=== PATIENT | male | born 1960 | race Caucasian/White ===

== ENCOUNTER 2017-09-13 15:33 | Inpatient (IN) | END 2017-09-17 13:40 | disposition home or self-care (01) | DRG 940 ==

== ENCOUNTER 2017-09-24 17:05 | Emergency (ER) | END 2017-09-24 17:26 | disposition left against medical advice (07) ==

== ENCOUNTER 2017-09-26 22:16 | Inpatient (IN) | END 2017-10-01 14:20 | disposition home or self-care (01) | DRG 433 ==

== ENCOUNTER 2017-10-23 19:17 | Inpatient (IN) | END 2017-10-26 16:30 | disposition home or self-care (01) | DRG 863 ==

== ENCOUNTER 2017-10-30 13:48 | Emergency (ER) | END 2017-10-30 17:35 | disposition home or self-care (01) ==

== ENCOUNTER 2017-11-12 15:06 | Emergency (ER) | END 2017-11-12 18:21 | disposition home or self-care (01) ==

== ENCOUNTER 2017-12-28 17:48 | Inpatient (IN) | END 2018-01-06 14:45 | disposition home or self-care (01) | DRG 603 ==

== ENCOUNTER 2018-09-02 11:47 | Emergency (ER) | payer OTHER ==
[~2018-09-02] VITALS: Ht 188 cm; Wt 123.9 kg
[~2018-09-02 11:47] MED LIST: AMLO-145 PO; ASPI-817 PO; ATEN-51 PO; DOCU-144 PO; FER325 PO; FURO40TA4 PO; GABA100C14 PO; OMEG1CAP2 PO; PANT40TA4 PO; POTA20TA96 PO; SPIR50TA PO
[2018-09-02 12:07] VITALS: Ht 188 cm; Wt 123.9 kg
[2018-09-02] MEDS ORDERED: CHLO25CA9 PO (15:26)
[2018-09-02 15:45] VITALS: BP 140/88; PULSE 91; RESP 22
[2018-09-02] MEDS ORDERED: FURO40TA4 PO (15:45)
[2018-09-02] MEDS ORDERED: SPIR50TA PO (15:45)
[2018-09-02] MEDS ORDERED: ASPI-817 PO (15:46)
[2018-09-02] MEDS ORDERED: AMLO5TAB4 PO (15:46)
[2018-09-02] MEDS ORDERED: ATEN-51 PO (15:46)
[2018-09-02] MEDS ORDERED: OMEP40CA6 PO (15:47)
--- NOTE | 2018-09-02 19:49 | ERD ---
ER Documentation Chief Complaint Chief Complaint sent from pmd for alcohol detoxication HPI 58-year-old man brought in by his surgeon for evaluation of alcohol detoxification. Patient states he is a chronic alcoholic and has been drinking for a couple of decades but stopped about a year ago and then started drinking again a few months ago. He states he is ready to quit. He denies chest pain or shortness of breath, no blood per rectum or melena, no fevers or chills, no vomiting or diarrhea. ROS All systems reviewed and are negative except as per history of present illness. Medications Home Meds Active Scripts Chlordiazepoxide* (Chlordiazepoxide*) 25 Mg Capsule, 25 MG PO BID PRN for CONTROL WITHDRAWAL SYMPTOMS, #10 CAP Prov:KEE HERNANDEZ MD 09/02/18 Reported Medications Omeprazole* (Omeprazole*) 40 Mg Capsule.dr, 40 MG PO DAILY, #30 CAP 09/02/18 Aspirin* (Aspirin* EC) 81 Mg Tablet.dr, 81 MG PO DAILY, TAB 09/02/18 Amlodipine Besylate* (Norvasc*) 5 Mg Tablet, 5 MG PO DAILY, TAB 09/02/18 Atenolol* (Atenolol*) 25 Mg Tablet, 25 MG PO DAILY, #30 TAB 09/02/18 Furosemide* (Furosemide*) 40 Mg Tablet, 40 MG PO BID, TAB 09/02/18 Spironolactone* (Aldactone*) 50 Mg Tablet, 50 MG PO BID, #60 TAB 09/02/18 Discontinued Reported Medications [place]-3 Acid Ethyl Esters (Lovaza) 1 Gm Capsule, 4 GM PO DAILY, CAP 09/11/17 Spironolactone* (Aldactone*) 50 Mg Tablet, 50 MG PO DAILY, #30 TAB 09/11/17 Furosemide* (Furosemide*) 40 Mg Tablet, 40 MG PO DAILY, TAB 09/11/17 Amlodipine Besylate* (Amlodipine Besylate*) 5 Mg Tablet, 5 MG PO DAILY, #30 TAB 09/11/17 Potassium Chloride* (Potassium Chloride*) 20 Meq Tablet.er, 20 MEQ PO DAILY, TAB.SA 09/11/17 Ferrous Sulfate* (Ferrous Sulfate*) 325 Mg Tabec, 325 MG PO DAILY, TAB 09/11/17 Gabapentin* (Gabapentin*) 100 Mg Capsule, 100 MG PO DAILY, #90 CAP 09/11/17 Atenolol* (Atenolol*) 25 Mg Tablet, 25 MG PO DAILY, #30 TAB 09/11/17 Aspirin* (Aspirin* EC) 81 Mg Tablet.dr, 81 MG PO DAILY, TAB 09/11/17 Discontinued Scripts Docusate Sodium* (Colace*) 100 Mg Capsule, 100 MG PO BID, #30 CAP Prov:CELSALIGIA 09/17/17 Pantoprazole* (Pantoprazole*) 40 Mg Tablet.dr, 40 MG PO DAILY@06 for 30 Days Prov:CELSALIGIA 09/17/17 Allergies Allergies: Coded Allergies: No Known Allergy (Unverified , 09/02/18) PMhx/Soc Alcoholic liver cirrhosis, CAD, hypertension, obesity, alcoholism Anesthesia Reaction: No Hx Neurological Disorder: No Hx Respiratory Disorders: No Hx Cardiac Disorders: Yes (HTN) Hx Psychiatric Problems: No Hx Miscellaneous Medical Probl: Yes (liver cirrhosis) Hx Alcohol Use: Yes Hx Substance Use: No Hx Tobacco Use: No Smoking Status: Never smoker FmHx Family History: No diabetes Physical Exam Vitals Vital Signs Date Temp Pulse Resp B/P (MAP) Pulse Ox O2 O2 Flow FiO2 Time Delivery Rate 09/02/18 97.9 91 22 140/88 96 Room Air 15:45 (105) 09/02/18 98.6 97 18 148/86 95 12:07 (106) Physical Exam Const: No acute distress, afebrile Head: Atraumatic Eyes: Normal Conjunctiva ENT: Normal External Ears, Nose and Mouth. Neck: Full range of motion. No meningismus. Resp: Clear to auscultation bilaterally Cardio: Regular rate and rhythm, no murmurs Abd: Soft, non tender, non distended. Skin: No petechiae or rashes Back: No midline or flank tenderness Ext: No cyanosis, or edema Neur: Awake and alert x3, no focal deficits or facial asymmetry, gait normal Psych: Normal Mood and Affect Procedures/MDM Patient is alert and oriented x3, and and is speaking clearly without any difficulty, his gait is steady and he looks well overall. I did give him referrals to outpatient alcohol detox facilities and gave him both verbal and written instructions on discharge and follow-up. I also spoke to his surgeon over the phone and he agreed to see him in his office on a regular basis to help with his alcoholism. I gave the patient a prescription for chlordiazepoxide to help with withdrawal symptoms and told him not to use this medication when with any other benzodiazepines, sleeping aids, or opioid analgesics Differential diagnoses considered, included but not limited to acute coronary syndrome, pulmonary embolism, aortic dissection, abdominal aortic aneurysm, sepsis, stroke, meningitis, encephalitis, pneumonia, appendicitis, cholecystitis, bowel obstruction, pyelonephritis, nephrolithiasis, cystitis, as well as metabolic, hematologic, and electrolyte abnormalities. As well as abscess, cellulitis, fractures, and dislocations. Patient feels much better at this time, and vital signs are normal, symptoms have improved. I did give strict instructions to return to the ED if symptoms continue or worsen, patient will otherwise follow-up with primary care physician. Patient understood instructions and agreed to plan. Disclaimer: Inadvertent spelling and grammatical errors are likely due to EHR/dictation software use and do not reflect on the overall quality of patient care. Also, please note that the electronic time recorded on this note does not necessarily reflect the actual time of the patient encounter. Departure Diagnosis: Primary Impression: Alcohol abuse Ruled Out: Alcoholic intoxication Condition: Good Patient Instructions: Alcohol Addiction, Alcohol Abuse Referrals: [facility] (PCP) KEE HERNANDEZ MD Sep 02, 2018 19:49
== END 2018-09-02 15:46 | disposition home or self-care (01) ==
LOC: E/R 11:47
DX: F10.10 Alcohol abuse, uncomplicated (principal); I25.10 Atherosclerotic heart disease of native coronary artery without angina pectoris; I10 Essential (primary) hypertension; E66.9 Obesity, unspecified; Z79.82 Long term (current) use of aspirin; Z68.35 Body mass index [BMI] 35.0-35.9, adult
CPT/HCPCS: 99283